=== PATIENT | female | born 1970 | race African-American/Black ===

== ENCOUNTER 2019-02-12 22:52 | Emergency (ER) | payer MEDICAID ==
[~2019-02-12] VITALS: Ht 162.6 cm; Wt 109.0 kg
[2019-02-13] MEDS ORDERED: HYDROCODONE/ACETAMINOPHEN 5/325MG TABLET PO ONE (00:30)
[2019-02-13 02:10] VITALS: BP 152/82
== END 2019-02-13 02:13 | disposition home or self-care (01) ==
LOC: ER 22:52
DX: S83.8X2A Sprain of other specified parts of left knee, initial encounter (principal); I10 Essential (primary) hypertension; X58.XXXA Exposure to other specified factors, initial encounter; Y93.89 Activity, other specified; Y92.89 Other specified places as the place of occurrence of the external cause; Y99.8 Other external cause status; Z91.018 Allergy to other foods
CPT/HCPCS: 73562; 99283; L1830

== ENCOUNTER 2021-04-12 13:19 | Emergency (ER) | payer MEDICAID ==
[~2021-04-12] VITALS: Ht 177.8 cm; Wt 97.0 kg
[2021-04-12] MEDS ORDERED: FAMOTIDINE 20MG/2ML VIAL IV STA (14:08)
[2021-04-12] MEDS ORDERED: SODIUM CHLORIDE 0.9% 1,000 ML IV ONE (14:15)
[2021-04-12 14:55] LABS: BASOPHILS % 0.3 % (0.0-2.0); HEMATOCRIT. 38.6 % (36.0-48.0); MEAN CORPUSCULAR HEMOGLOBIN 22.3 pg (28.0-32.0); MEAN CORPUSCULAR VOLUME 71.4 fL (81.0-99.0); MEAN PLATELET VOLUME 9.1 fl (7.4-10.4); MONOCYTES % 4.6 % (2.0-8.0); NEUTROPHILS % 83.1 % (40.0-76.0); PLATELET 252 x1000/uL (130-400); RED BLOOD CELL COUNT 5.41 mill/uL (4.2-5.4); RED CELL DISTRIBUTION WIDTH 14.4 % (11.6-14.6)
[2021-04-12 15:01] LABS: CHLORIDE 103 mEq/L (98-107)
[2021-04-12 17:55] LABS: CLARITY URINE CLOUDY (CLEAR); COLOR URINE YELLOW (YELLOW); KETONES URINE NEGATIVE (NEGATIVE); LEUKOCYTE ESTERASE URINE 3+ (NEGATIVE); NITRITE URINE NEGATIVE (NEGATIVE); OCCULT BLOOD URINE TRACE (NEGATIVE); PH URINE 5.5 (4.5-8.0); PROTEIN URINE 1+ (NEGATIVE); SPECIFIC GRAVITY URINE 1.018 (1.005-1.030)
[2021-04-12] MEDS ORDERED: CEPHALEXIN 250MG CAPSULE PO ONE (19:00)
[2021-04-12] MEDS ORDERED: CEPH500T MT (19:03)
[2021-04-12] MEDS ORDERED: KETOROLAC 15MG/ML VIAL IV ONE (19:15)
[2021-04-12 20:00] VITALS: BP 176/71
== END 2021-04-12 20:10 | disposition home or self-care (01) ==
LOC: ER 13:29
DX: N30.00 Acute cystitis without hematuria (principal); E11.9 Type 2 diabetes mellitus without complications; I10 Essential (primary) hypertension
CPT/HCPCS: 36415; 71045; 76705; 80053; 81003; 83690; 84484; 85025; 87077; 87086; 87186; 93005; 96361; 96374; 96375; 99285; J1885; J3490; J7030; Z7610